=== PATIENT | female | born 1960 | race Caucasian/White ===

== ENCOUNTER 2022-10-12 22:13 | Emergency (ER) | payer BC, OTHER ==
[2022-10-12 23:06] LABS: ESTIMATED GFR 97 mL/min (>60)
== END 2022-10-12 23:29 | disposition home or self-care (01) ==
LOC: FB.ED 22:13
DX: R42 Dizziness and giddiness (principal); Z79.82 Long term (current) use of aspirin
CPT/HCPCS: 36415; 80053; 84484; 85025; 93005; 99283; 99284